=== PATIENT | male | born 2000 | race African-American/Black ===

== ENCOUNTER 2020-01-27 07:22 | Emergency (ER) | payer SELFPAY ==
[~2020-01-27] VITALS: Ht 172.7 cm; Wt 81.5 kg
[2020-01-27 07:22] VITALS: BP 136/79
[2020-01-27] MEDS ORDERED: ACET-683 PO (07:31)
[2020-01-27] MEDS ORDERED: LIDOCAINE 2% W/ EPINEPHRINE 1.7 ML DENTAL INJ SM ONE (07:45)
== END 2020-01-27 08:16 | disposition home or self-care (01) ==
LOC: M ED 07:22
DX: K08.89 Other specified disorders of teeth and supporting structures (principal)

== ENCOUNTER 2023-03-22 01:50 | Emergency (ER) | payer SELFPAY ==
[~2023-03-22] VITALS: Ht 172.7 cm; Wt 81.5 kg
[~2023-03-22 01:50] MED LIST: ACET-683 PO
[2023-03-22] MEDS ORDERED: ISOVUE-370 76% 100ML VIAL As Ordered ONE (02:07)
[2023-03-22] MEDS ORDERED: PROPOFOL 1,000 MG/100 ML VIAL As Ordered ONE (02:12)
[2023-03-22 02:29] LABS: BASO # 0.1 10^3/uL (0.0-0.2); BASO % 0.4 % (0.0-1.0); EOS # 0.3 10^3/uL (0.0-0.5); EOS % 1.3 % (0.0-3.0); HEMATOCRIT 42.6 % (42.0-52.0); HEMOGLOBIN 14.4 g/dl (13.5-17.5); LYMPH # 6.3 10^3/uL (1.5-5.0); MEAN CORPUSCULAR HEMOGLOBIN 28.9 pg (27.0-33.0); MEAN CORPUSCULAR HGB CONC 33.8 g/dl (32.0-36.5); MEAN CORPUSCULAR VOLUME 85.4 fl (80.0-96.0); MONO % 4.2 % (2.0-8.0); NEUTROPHILS # 16.1 10^3/uL (1.5-8.5); NEUTROPHILS % 66.5 % (36.0-66.0); PLATELET COUNT, AUTOMATED 290 10^3/uL (150-450); RED BLOOD COUNT 4.99 10^6/uL (4.30-6.10); WHITE BLOOD COUNT 24.2 10^3/uL (4.0-10.0)
[2023-03-22 02:33] LABS: APPEARANCE, URINE HAZY (CLEAR); BACTERIA, URINE AUTO NEGATIVE (NEGATIVE); BILIRUBIN, URINE AUTO NEGATIVE (NEGATIVE); BLOOD, URINE BLOOD 3+ (NEGATIVE); COLOR, URINE YELLOW (YELLOW); GLUCOSE, URINE (UA) AUTO NEGATIVE (NEGATIVE); GRANULAR CAST, URINE AUTO 24 /LPF; KETONE, URINE AUTO NEGATIVE (NEGATIVE); LEUKOCYTE ESTERASE, URINE AUTO 1+ (NEGATIVE); MUCUS, URINE SMALL (NEGATIVE); NITRITE, URINE AUTO NEGATIVE (NEGATIVE); PROTEIN, URINE AUTO 2+ mg/dL (NEGATIVE); RBC, URINE AUTO TNTC /HPF (0-3); SPECIFIC GRAVITY URINE AUTO 1.013 (1.002-1.035); SQUAMOUS EPITHELIAL CELL UR AU 0 /HPF (0-6); UROBILINOGEN, URINE AUTO 0.2 mg/dL (0.0-2.0); WBC, URINE AUTO 25 /HPF (0-3)
[2023-03-22 02:41] LABS: INR 1.26; PARTIAL THROMBOPLASTIN TIME 29.4 SECONDS (24.8-34.2); PROTHROMBIN TIME 15.4 SECONDS (12.5-14.5)
[2023-03-22] MEDS ORDERED: niCARdipine 40MG IN 200ML NACL IV BAG As Ordered ONE (02:45)
[2023-03-22 02:48] LABS: ABG BASE EXCESS -5.2 (-2.0-2.0); ABG HCO3 20.5 MMOL/L (22.0-26.0); ABG O2 SATURATION 91.9 % (95.0-99.0); ABG PARTIAL PRESSURE CO2 40.7 mmHg (35.0-45.0); ABG PARTIAL PRESSURE O2 67.3 mmHg (75.0-100.0); ABG STANDARD HCO3 20.1 MMOL/L. (22.0-26.0); ABG TOTAL CO2 21.8 MMOL/L (22.0-29.0); ABG pH (ARTERIAL) 7.321 UNITS (7.350-7.450)
[2023-03-22] MEDS ORDERED: MANNITOL 25% 12.5GM 50ML VIAL As Ordered ONE (02:52)
[2023-03-22 02:59] LABS: AMPHETAMINES LEVEL URINE NEGATIVE (NEGATIVE); BARBITURATES URINE NEGATIVE (NEGATIVE); BENZODIAZEPINES URINE NEGATIVE (NEGATIVE); COCAINE METABOLITE URINE NEGATIVE (NEGATIVE); METHADONE URINE NEGATIVE (NEGATIVE); OPIATES URINE NEGATIVE (NEGATIVE); PHENCYCLIDINE URINE NEGATIVE (NEGATIVE)
[2023-03-22 03:00] LABS: CANNABINOIDS URINE POSITIVE (NEGATIVE)
[2023-03-22 03:01] LABS: ETHYL ALCOHOL (ETHANOL) 0.162 % (0.000-0.010)
[2023-03-22 03:03] LABS: ALBUMIN 3.8 G/DL (3.2-5.2); BILIRUBIN,DIRECT 0.1 MG/DL (<0.4); BILIRUBIN,TOTAL 0.4 MG/DL (0.3-1.2); CK-MB VALUE MASS 2.9 NG/ML (<3.6); TOTAL PROTEIN 6.5 G/DL (5.7-8.2)
[2023-03-22 03:04] LABS: MB/CK RELATIVE INDEX 0.58 (< OR =4)
[2023-03-22] MEDS: ETOMIDATE INJ 20MG/10ML VIAL IV STA (03:05)
[2023-03-22] MEDS: ROCURONIUM BROMIDE 50MG/5ML VIAL IV SCH (03:05)
[2023-03-22] MEDS: ONDANSETRON 4MG 2ML VIAL IV ONE (03:06)
[2023-03-22] MEDS: MIDAZOLAM INJ 2MG/2ML VIAL IV STA (03:06)
[2023-03-22 03:07] VITALS: TEMP 97.2
[2023-03-22] MEDS: propofoL 1,000 MG in IV 1 EA IV SCH (03:07)
[2023-03-22] MEDS: niCARdipine IV 40 MG in IV 1 EA IV SCH (03:08)
[2023-03-22] MEDS: NS 1,000 ML IV ONE ×2 (03:08→03:26)
[2023-03-22] MEDS: MANNITOL 25% 12.5GM 50ML VIAL IV ONE (03:08)
[2023-03-22] MEDS: KCL 10MEQ/100ML SWI (KRUN) 10 MEQ in IV 1 EA IV ONE (03:25)
[2023-03-22 03:39] VITALS: O2SAT 100
[2023-03-22 03:45] VITALS: BP 121/60
== END 2023-03-22 04:10 | disposition short-term general hospital (02) ==
LOC: EDBD 01:50 → M ED 01:50
DX: S06.5X9A Traumatic subdural hemorrhage with loss of consciousness of unspecified duration, initial encounter (principal); S06.6X9A Traumatic subarachnoid hemorrhage with loss of consciousness of unspecified duration, initial encounter; S36.113A Laceration of liver, unspecified degree, initial encounter; S02.91XA Unspecified fracture of skull, initial encounter for closed fracture; I45.81 Long QT syndrome; V49.40XA Driver injured in collision with unspecified motor vehicles in traffic accident, initial encounter; Z79.1 Long term (current) use of non-steroidal anti-inflammatories (NSAID); Y92.410 Unspecified street and highway as the place of occurrence of the external cause; Y93.89 Activity, other specified; Y99.9 Unspecified external cause status
CPT/HCPCS: 36600; 70450; 70486; 71260; 72125; 74177; 80047; 80076; 80307; 81001; 82077; 82150; 82550; 82553; 82803; 83605; 83690; 84484; 85025; 85610; 85730; 86850; 86900; 86901; 93005; 93041; 94760; 96374; 96375; 99285; J2150; J2250; J2405; Q9967